=== PATIENT | female | born 1955 | race Caucasian/White ===

== ENCOUNTER → 2018-01-20 10:48 | Outpatient (CLI) | payer OTHER, SELFPAY ==
[2018-01-20 12:51] LABS: Cholesterol 278 mg/dL (140-199); Glucose 95 mg/dL (80-110); HDL Cholesterol 44 mg/dL (40-60); LDL Cholesterol Calculated 176 mg/dL (<100); Triglycerides 292 mg/dL (35-150)
== END ==
PROVIDERS: PCP Family Medicine; Visit Provider Family Medicine
DX: Z13.1 Encounter for screening for diabetes mellitus (principal); Z13.220 Encounter for screening for lipoid disorders; E03.9 Hypothyroidism, unspecified
CPT/HCPCS: 36415; 80061; 82947; 84443

== ENCOUNTER → 2018-02-22 12:36 | Outpatient (CLI) | payer OTHER, SELFPAY ==
--- NOTE | 2018-02-22 12:38 | DI.MG.S_ITS ---
BILATERAL DIGITAL SCREENING MAMMOGRAM 3D/2D WITH CAD: 02/22/2018 CLINICAL: Routine screening. Family history of breast cancer. Comparison is made to exams dated: 11/22/2015 mammogram, 02/06/2013 mammogram, and 08/16/2010 mammogram - [facility]. The tissue of both breasts is predominantly fatty. Current study was also evaluated with a Computer Aided Detection (CAD) system. There are benign post operative findings in both breasts. No significant masses, calcifications, or other findings are seen in either breast. There has been no significant interval change. IMPRESSION: There is no mammographic evidence of malignancy. A 1 year screening mammogram is recommended.(02/23/2019) This exam was interpreted at Station ID: [id number]. NOTE: For mammograms, a report in lay terms will be sent to the patient. Approximately 15% of breast malignancies will not be visualized mammographically. In the management of a palpable breast mass, a negative mammogram must not discourage biopsy of a clinically suspicious lesion. Electronically Signed By: Anna grover/niko:02/24/2018 09:19:03 letter sent: Normal Exam ACR BI-RADS Category 2: Benign Finding(s) 3342F
== END ==
PROVIDERS: PCP Family Medicine; Visit Provider Family Medicine
DX: Z12.31 Encounter for screening mammogram for malignant neoplasm of breast (principal); Z80.3 Family history of malignant neoplasm of breast
CPT/HCPCS: 77063; 77067

== ENCOUNTER → 2018-04-04 09:41 | Outpatient (CLI) | payer OTHER, SELFPAY ==
[2018-04-04 12:40] LABS: Thyroid Stimulating Hormone < 0.02 uIU/mL (0.47-4.68)
== END ==
PROVIDERS: PCP Family Medicine; Visit Provider Family Medicine
DX: E03.9 Hypothyroidism, unspecified (principal)
CPT/HCPCS: 36415; 84443

== ENCOUNTER → 2018-12-15 16:06 | Outpatient (CLI) | payer MEDICARE, OTHER, SELFPAY ==
[2018-12-15 17:31] LABS: Free T3, Triiodothyronine Free 4.89 pg/mL (2.77-5.27)
[2018-12-15 17:45] LABS: Thyroid Stimulating Hormone < 0.02 uIU/mL (0.47-4.68)
[2018-12-17 16:31] LABS: Thyroid Peroxidase Antibodies 13 IU/mL (< 9)
== END ==
PROVIDERS: PCP Family Medicine; Visit Provider Family Medicine
DX: E03.9 Hypothyroidism, unspecified (principal)
CPT/HCPCS: 36415; 84436; 84443; 84481; 86376

== ENCOUNTER → 2018-12-29 08:18 | Outpatient (CLI) | payer MEDICARE, OTHER, SELFPAY ==
--- NOTE | 2018-12-29 08:23 | DI.RAD.S_ITS ---
PROCEDURE: XR ANKLE LT MIN 3V INDICATIONS: l ankle pain TECHNIQUE: 3 views of the ankle were acquired. COMPARISON: None. FINDINGS: Bones: No fractures or dislocations. Ankle mortise is normally aligned. No suspicious bony lesions. Well-defined plantar and dorsal calcaneal enthesophytes are seen. Soft tissues: No tibiotalar joint effusion. Achilles tendon appears normal. Moderate soft tissue swelling is seen around ankle joint particularly over lateral malleolus. IMPRESSION: Soft tissue swelling around ankle joint. No definite acute ankle fracture or dislocation. Dictated by: Conrado Campos M.D. on 12/29/2018 at 8:09 Approved by: Conrado Campos M.D. on 12/29/2018 at 8:13
== END ==
PROVIDERS: PCP Family Medicine; Visit Provider Physician Assistant
DX: M25.572 Pain in left ankle and joints of left foot (principal); M79.89 Other specified soft tissue disorders
CPT/HCPCS: 73610

== ENCOUNTER → 2019-04-13 11:21 | Outpatient (CLI) | payer MEDICARE, OTHER, SELFPAY ==
[2019-04-13 13:42] LABS: TSH w/ Reflex to FT4 < 0.02 uIU/mL (0.47-4.68)
[2019-04-13 14:37] LABS: Free T4, Direct Thyroxine 1.69 ng/dL (0.78-2.19)
== END ==
PROVIDERS: PCP Family Medicine; Visit Provider Family Medicine
DX: E03.9 Hypothyroidism, unspecified (principal)
CPT/HCPCS: 36415; 84439; 84443

== ENCOUNTER → 2020-06-27 10:00 | Outpatient (CLI) | payer MEDICARE, OTHER, SELFPAY ==
[2020-06-27 11:07] LABS: Add Manual Diff / Slide Review NO; Basophils Absolute Auto 0 /uL (0-100); Basophils Percent Auto 0.9 % (0-2); Eosinophils Absolute Auto 100 /uL (0-450); Eosinophils Percent Auto 3.7 % (2-4); Lymphocytes Absolute Auto 1300 /uL (1100-4500); Mean Corpuscular Hemoglobin 29.8 PG (26-34); Mean Corpuscular Volume 87.6 fL (80-100); Monocytes Absolute Auto 400 /uL (0-900); Neutrophils Absolute Auto 2200 /uL (1500-7000); Neutrophils Percent Auto 54.4 % (50-75); Platelet Count 225 X10^3/uL (150-400); Red Blood Cell Count 5.02 X10^6/uL (4.0-5.2); Red Cell Distribution Width 13.1 % (11.6-14.8)
[2020-06-27 11:18] LABS: Alanine Aminotransferase 30 IU/L (<35); Albumin 4.2 g/dL (3.5-5.0); Albumin Globulin Ratio 1.4 (1.0-2.8); Alkaline Phosphatase 92 U/L (38-126); Aspartate Aminotransferase 37 IU/L (14-36); BUN Creatinine Ratio 23.7 (6-22); Bilirubin Total 0.4 mg/dL (0.2-1.3); Blood Urea Nitrogen 23 mg/dL (7-17); Calcium 9.1 mg/dL (8.4-10.2); Carbon Dioxide 30 mmol/L (22-32); Chloride 104 mmol/L (98-107); Cholesterol 260 mg/dL (140-199); Estimated Glomerular Filt Rate 57.5 mL/min (>60); Globulin 2.9 g/dL (1.7-4.1); Glucose 104 mg/dL (80-110); HDL Cholesterol 46 mg/dL (40-60); HEMOLYSIS < 15 (0-50); LDL Cholesterol Calculated 154 mg/dL (<100); Potassium 4.5 mmol/L (3.4-5.1); Sodium 138 mmol/L (137-145); Total Protein 7.1 g/dL (6.3-8.2); Triglycerides 301 mg/dL (35-150)
[2020-06-27 11:57] LABS: Free T3, Triiodothyronine Free 4.02 pg/mL (2.77-5.27); Free T4, Direct Thyroxine 1.34 ng/dL (0.78-2.19)
[2020-06-27 12:11] LABS: Thyroid Stimulating Hormone 0.294 uIU/mL (0.47-4.68)
== END ==
PROVIDERS: PCP Family Medicine; Referring Provider Family Medicine; Visit Provider Family Medicine
DX: Z13.1 Encounter for screening for diabetes mellitus (principal); E03.9 Hypothyroidism, unspecified; E78.5 Hyperlipidemia, unspecified
CPT/HCPCS: 36415; 80053; 80061; 84439; 84443; 84481; 85025

== ENCOUNTER → 2020-07-27 11:53 | Outpatient (CLI) | payer MEDICARE, OTHER, SELFPAY ==
--- NOTE | 2020-07-27 11:55 | DI.MG.S_ITS ---
BILATERAL DIGITAL SCREENING MAMMOGRAM 3D/2D WITH CAD: 07/27/2020 CLINICAL: Routine screening. Family history of breast cancer. Comparison is made to exams dated: 02/22/2018 mammogram - [facility] and 11/22/2015 mammogram - [facility]. The tissue of both breasts is predominantly fatty. Current study was also evaluated with a Computer Aided Detection (CAD) system. There are benign post operative findings in both breasts. No significant masses, calcifications, or other findings are seen in either breast. There has been no significant interval change. IMPRESSION: BENIGN There is no mammographic evidence of malignancy. A 1 year screening mammogram is recommended. This exam was interpreted at Station ID: [id number]. NOTE: For mammograms, a report in lay terms will be sent to the patient. Approximately 15% of breast malignancies will not be visualized mammographically. In the management of a palpable breast mass, a negative mammogram must not discourage biopsy of a clinically suspicious lesion. Electronically Signed By: Dre collier/niko:07/27/2020 16:21:30 letter sent: Normal Exam ACR BI-RADS Category 2: Benign Finding(s) 3342F
== END ==
PROVIDERS: PCP Family Medicine; Referring Provider Family Medicine; Visit Provider Family Medicine
DX: Z12.31 Encounter for screening mammogram for malignant neoplasm of breast (principal); Z80.3 Family history of malignant neoplasm of breast
CPT/HCPCS: 77063; 77067

== ENCOUNTER → 2021-02-06 12:39 | Outpatient (CLI) | payer MEDICARE, OTHER, SELFPAY ==
[2021-02-06 16:59] LABS: Thyroid Stimulating Hormone 0.193 uIU/mL (0.47-4.68)
== END ==
PROVIDERS: PCP Family Medicine; Referring Provider Family Medicine; Visit Provider Family Medicine
DX: E03.9 Hypothyroidism, unspecified (principal)
CPT/HCPCS: 36415; 84443

== ENCOUNTER → 2021-03-28 10:20 | Outpatient (CLI) | payer MEDICARE, OTHER, SELFPAY ==
[2021-03-28 13:48] LABS: Thyroid Stimulating Hormone 7.36 uIU/mL (0.47-4.68)
== END ==
PROVIDERS: PCP Family Medicine; Referring Provider Family Medicine; Visit Provider Family Medicine
DX: E03.9 Hypothyroidism, unspecified (principal)
CPT/HCPCS: 36415; 84443

== ENCOUNTER → 2021-08-24 15:15 | Outpatient (CLI) | payer MEDICARE, OTHER, SELFPAY ==
--- NOTE | 2021-08-24 15:16 | DI.MG.S_ITS ---
BILATERAL DIGITAL SCREENING MAMMOGRAM 3D/2D WITH CAD: 08/24/2021 CLINICAL: Routine screening. Family history of breast cancer. Comparison is made to exams dated: 07/27/2020 mammogram, 02/22/2018 mammogram - [facility], and 11/22/2015 mammogram - [facility]. The tissue of both breasts is predominantly fatty. Current study was also evaluated with a Computer Aided Detection (CAD) system. There are benign post operative findings in both breasts. No significant masses, calcifications, or other findings are seen in either breast. There has been no significant interval change. IMPRESSION: BENIGN There is no mammographic evidence of malignancy. A 1 year screening mammogram is recommended. This exam was interpreted at Station ID: [id number]. NOTE: For mammograms, a report in lay terms will be sent to the patient. Approximately 15% of breast malignancies will not be visualized mammographically. In the management of a palpable breast mass, a negative mammogram must not discourage biopsy of a clinically suspicious lesion. Electronically Signed By: Dre collier/niko:08/24/2021 16:15:20 letter sent: Normal Exam ACR BI-RADS Category 2: Benign Finding(s) 3342F
== END ==
PROVIDERS: PCP Family Medicine; Referring Provider Family Medicine; Visit Provider Family Medicine
DX: Z12.31 Encounter for screening mammogram for malignant neoplasm of breast (principal); Z80.3 Family history of malignant neoplasm of breast
CPT/HCPCS: 77063; 77067

== ENCOUNTER → 2021-09-14 09:47 | Outpatient (CLI) | payer MEDICARE, OTHER, SELFPAY ==
[2021-09-14 12:16] LABS: Thyroid Stimulating Hormone 0.423 uIU/mL (0.47-4.68)
== END ==
PROVIDERS: PCP Family Medicine; Referring Provider Family Medicine; Visit Provider Family Medicine
DX: E03.9 Hypothyroidism, unspecified (principal)
CPT/HCPCS: 36415; 84443

== ENCOUNTER → 2021-10-18 10:13 | Outpatient (CLI) | payer MEDICARE, OTHER, SELFPAY ==
[2021-10-18 12:13] LABS: Appearance Urine UA CLEAR; Bilirubin Urine UA NEGATIVE (NEGATIVE); Color Urine UA YELLOW; Glucose Urine UA NEGATIVE (Negative); Ketones Urine UA NEGATIVE (NEGATIVE); Leukocyte Esterase Urine UA NEGATIVE (NEGATIVE); Nitrite Urine UA POSITIVE (Negative); Occult Blood Urine UA TRACE-INTACT (Negative); Protein Urine UA NEGATIVE (Negative); Urobilinogen Urine UA 0.2 E.U./dL (0.2)
[2021-10-18 12:18] LABS: Bacteria Urine Many (>30); RBC Urine None Seen (0-5/HPF); WBC Urine None Seen (0-5/HPF)
== END ==
PROVIDERS: PCP Family Medicine; Visit Provider Family Medicine
DX: R35.0 Frequency of micturition (principal); R82.90 Unspecified abnormal findings in urine
CPT/HCPCS: 81001; 87086

== ENCOUNTER → 2021-10-18 10:27 | Outpatient (CLI) | payer MEDICARE, OTHER, SELFPAY ==
--- NOTE | 2021-10-18 10:29 | DI.RAD.S_ITS ---
PROCEDURE: XR HAND RT MIN 3V INDICATIONS: Hand Pain TECHNIQUE: 3 views of the hand(s) acquired. COMPARISON: [facility], CR, XR HAND LT MIN 3V, 10/18/2021, 10:19. FINDINGS: Bones: No fractures or dislocations. Carpal bones are normally aligned. No suspicious bony lesions. Moderate 1st CMC degenerative narrowing is present. No definitive erosions. Soft tissues: No suspicious soft tissue calcifications. IMPRESSION: Moderate 1st CMC arthritic narrowing. Dictated by: Suzie Greer M.D. on 10/18/2021 at 14:21 Approved by: Suzie Greer M.D. on 10/18/2021 at 14:48
--- NOTE | 2021-10-18 10:29 | DI.RAD.S_ITS ---
PROCEDURE: XR HAND LT MIN 3V INDICATIONS: Hand Pain TECHNIQUE: 3 views of the hand(s) acquired. COMPARISON: None. FINDINGS: Bones: No fractures or dislocations. Carpal bones are normally aligned. No suspicious bony lesions. There is mild interphalangeal joint space narrowing. There is severe osteoarthritis at the 1st CMC joint. A subchondral cyst is present within the trapezium. Soft tissues: No suspicious soft tissue calcifications. IMPRESSION: Severe osteoarthritis at the 1st CMC joint. Mild interphalangeal joint space narrowing consistent with osteoarthritis. Dictated by: Anna Londono M.D. on 10/18/2021 at 11:51 Approved by: Anna Londono M.D. on 10/18/2021 at 11:52
== END ==
PROVIDERS: PCP Family Medicine; Referring Provider Family Medicine; Visit Provider Family Medicine
DX: M18.0 Bilateral primary osteoarthritis of first carpometacarpal joints (principal); M79.641 Pain in right hand; M79.642 Pain in left hand; R35.0 Frequency of micturition; R82.90 Unspecified abnormal findings in urine
CPT/HCPCS: 73130; 81001; 87077; 87086; 87186

== ENCOUNTER → 2021-10-19 08:36 | Outpatient (CLI) | payer MEDICARE, OTHER, SELFPAY ==
[2021-10-19 10:39] LABS: Thyroid Stimulating Hormone 3.76 uIU/mL (0.47-4.68)
== END ==
PROVIDERS: PCP Family Medicine; Referring Provider Family Medicine; Visit Provider Family Medicine
DX: E03.9 Hypothyroidism, unspecified (principal); R89.9 Unspecified abnormal finding in specimens from other organs, systems and tissues
CPT/HCPCS: 36415; 84443

== ENCOUNTER → 2022-10-04 09:43 | Outpatient (CLI) | payer MEDICARE, OTHER, SELFPAY ==
--- NOTE | 2022-10-04 09:46 | DI.RAD.S_ITS ---
PROCEDURE: XR KNEE RT 3V INDICATIONS: knee pain TECHNIQUE: 3 views of the knee were acquired. COMPARISON: None. FINDINGS: Bones: No fractures or dislocations. No suspicious bony lesions. Moderate medial compartment joint space narrowing Soft tissues: No joint effusion. No suspicious soft tissue calcifications. IMPRESSION: Moderate medial compartment joint space narrowing Approved by: Guero Ayala M.D. on 10/04/2022 at 14:06
== END ==
PROVIDERS: PCP Family Medicine; Referring Provider Nurse Practitioner Family; Visit Provider Nurse Practitioner Family
DX: M25.561 Pain in right knee (principal)
CPT/HCPCS: 73562

== ENCOUNTER → 2023-04-09 11:15 | Outpatient (CLI) | payer MEDICARE, OTHER, SELFPAY ==
--- NOTE | 2023-04-09 11:18 | DI.RAD.S_ITS ---
PROCEDURE: XR LUMBAR SPINE 2-3V INDICATIONS: Pain TECHNIQUE: 3 views of the lumbar spine were acquired. COMPARISON: None. FINDINGS: Bones: 5 [id number] vertebrae are present. There is normal bony alignment. No vertebral body compression fractures. No suspicious bony lesions. Moderate degenerative disc disease at L5-S1, and mild degenerative disease at L1-L2. Moderate facet arthropathy at L4-L5 and L5-S1. Soft tissues: Overlying bowel gas pattern is normal. No suspicious soft tissue calcifications. Cholecystectomy clips are noted. IMPRESSION: 1. Moderate degenerative disc and facet disease. Dictated by: Latesha Rios M.D. on 04/09/2023 at 13:28 Approved by: Latesha Rios M.D. on 04/09/2023 at 13:29
[2023-04-09 13:25] LABS: Cholesterol 211 mg/dL (140-199); Glucose 102 mg/dL (80-110); HDL Cholesterol 50 mg/dL (40-60); LDL Cholesterol Calculated 137 mg/dL (<100); Triglycerides 121 mg/dL (35-150)
[2023-04-09 14:12] LABS: TSH w/ Reflex to FT4 0.06 uIU/mL (0.47-4.68)
[2023-04-09 14:52] LABS: Free T4, Direct Thyroxine 1.61 ng/dL (0.78-2.19)
== END ==
PROVIDERS: PCP Family Medicine; Referring Provider Family Medicine; Visit Provider Family Medicine
DX: Z13.1 Encounter for screening for diabetes mellitus (principal); E03.9 Hypothyroidism, unspecified; Z13.220 Encounter for screening for lipoid disorders; M51.36 Other intervertebral disc degeneration, lumbar region; M47.816 Spondylosis without myelopathy or radiculopathy, lumbar region
CPT/HCPCS: 36415; 72100; 80061; 82947; 84439; 84443

== ENCOUNTER → 2023-04-09 14:15 | Outpatient (CLI) | payer MEDICARE, OTHER, SELFPAY ==
--- NOTE | 2023-04-09 | DI.MG.S_ITS ---
BILATERAL DIGITAL SCREENING MAMMOGRAM 3D/2D WITH CAD: 04/09/2023 CLINICAL: Routine screening. Family history of breast cancer. Comparison is made to exams dated: 08/24/2021 mammogram, 07/27/2020 mammogram, and 02/22/2018 mammogram - [facility]. Both breasts are almost entirely fatty (category a/<25% glandular tissue). Current study was also evaluated with a Computer Aided Detection (CAD) system. There are benign post operative findings in both breasts. No significant masses, calcifications, or other findings are seen in either breast. There has been no significant interval change. IMPRESSION: BENIGN There is no mammographic evidence of malignancy. A 1 year screening mammogram is recommended. Based on the Tyrer Cuzick model (a risk assessment model) the patient's lifetime risk is 7.3% and her 10 year risk is 4.3%. According to the ACR, ACS, and NCCN guidelines, an annual breast MRI exam along with mammogram is recommended if the patient's lifetime risk is 20% or greater. This exam was interpreted at Station ID: [id number]. NOTE: For mammograms, a report in lay terms will be sent to the patient. Approximately 15% of breast malignancies will not be visualized mammographically. In the management of a palpable breast mass, a negative mammogram must not discourage biopsy of a clinically suspicious lesion. Electronically Signed By: Thad Stauffer M.D. acr/niko:04/09/2023 15:30:49 letter sent: Normal Exam ACR BI-RADS Category 2: Benign Finding(s) 3342F
== END ==
PROVIDERS: PCP Family Medicine; Referring Provider Family Medicine; Visit Provider Family Medicine
DX: Z12.31 Encounter for screening mammogram for malignant neoplasm of breast (principal); Z80.3 Family history of malignant neoplasm of breast
CPT/HCPCS: 77063; 77067

== ENCOUNTER → 2023-08-14 12:55 | Outpatient (CLI) | payer MEDICARE, OTHER, SELFPAY ==
[2023-08-14 14:54] LABS: Free T4, Direct Thyroxine 1.17 ng/dL (0.78-2.19)
== END ==
LOC: LAB 12:56
PROVIDERS: PCP Family Medicine; Referring Provider Family Medicine; Visit Provider Family Medicine
DX: E03.9 Hypothyroidism, unspecified (principal)
CPT/HCPCS: 36415; 84439; 84443

== ENCOUNTER → 2023-10-18 09:30 | Outpatient (CLI) | payer MEDICARE, OTHER, SELFPAY ==
[2023-10-18 11:10] LABS: TSH w/ Reflex to FT4 3.85 uIU/mL (0.47-4.68)
== END ==
LOC: LAB 09:32
PROVIDERS: PCP Family Medicine; Referring Provider Family Medicine; Visit Provider Family Medicine
DX: E03.9 Hypothyroidism, unspecified (principal)
CPT/HCPCS: 36415; 84443

== ENCOUNTER → 2024-09-09 09:53 | Outpatient (CLI) | payer MEDICARE, OTHER, SELFPAY ==
--- NOTE | 2024-09-09 09:55 | DI.MG.S_ITS ---
MM screening mammo BI: 09/09/2024. BI-RADS: 2 CLINICAL: 68-year old female for bilateral screening mammogram. Tyrer-Cuzick lifetime risk of 4.8%. Current reported family history of breast cancer: mother. The patient is status-post reduction mammoplasty. PRIOR EXAMS 04/09/2023, 08/24/2021, 07/27/2020, 02/22/2018. MAMMOGRAPHY TECHNIQUE: 2D and 3D (tomosynthesis) digital mammographic views obtained, with additional images as needed for full coverage. Current study was also evaluated with a Computer Aided Detection (CAD) system. DENSITY A. The breasts are almost entirely fatty. MAMMOGRAPHY FINDINGS Right: Benign-appearing calcification and post-surgical changes noted on the right. There are no suspicious masses, calcifications, or other findings in the breast. No significant change from comparison. Left: No suspicious mass, asymmetry, microcalcification, or other abnormality seen. No significant change from comparison. IMPRESSION: Right * No evidence of malignancy with benign findings. Left * No evidence of malignancy. RECOMMENDATIONS Bilateral * Annual screening mammography. OVERALL ASSESSMENT CATEGORY BI-RADS-2: Benign. The [employer] recommends annual screening mammography beginning at age 40 for women with average risk of breast cancer. ELECTRONICALLY SIGNED: Eleanor Zhao M.D. on 09/09/2024 at 11:06:46 AM PT Interpreting Station ID: [id number]
== END ==
PROVIDERS: PCP Family Medicine; Referring Provider Family Medicine; Visit Provider Family Medicine
DX: Z12.31 Encounter for screening mammogram for malignant neoplasm of breast (principal); Z80.3 Family history of malignant neoplasm of breast; R92.313 Mammographic fatty tissue density, bilateral breasts
CPT/HCPCS: 77063; 77067

== ENCOUNTER 2024-11-25 12:21 | Outpatient (RCR) | payer MEDICARE, OTHER, SELFPAY ==
--- NOTE | 2024-11-25 15:32 | OT.OPPOC ---
Physical, Occupational & Speech Therapy At [facility] Rhea Moran [id number] Visit Care Team Role Provider Type Lorena To MD Family Provider Physician Primary Care Provider Address: [facility], [place], [address] Cy Pan MD Attending Provider Non-Staff Referring Provider Address: [address] [place] [address], [id number] Occupational Therapy Plan of Care OT Outpatient Adult Evaluation Start: 11/25/24 12:08 Freq: Status: Active Protocol: Document 11/25/24 12:09 (Rec: 11/25/24 12:12 [id number]) General Information - Adult Visit Information Visit Number 1 of 12 Plan of Care Dates 11/25/24-02/17/25 Insurance no pre-auth;no copay;KX modifier required after 19 OT Information visits Session Time Visit Start Date 11/25/24 Visit Start Time 13:00 Visit Stop Time 13:45 Setting Treatment Setting Outpatient Care Visit Type Note Type Initial Evaluation Referral Referring Physician Dr. Cy Pan Reason for Referral Closed displaced fracture of proximal phalanx of L little finger Precautions none stated Identification Identification Yes Confirmed Identification EMR Confirmed By Medical Information Medical History R knee partial replacement ~1year ago, arthritis of L hand/fingers (limited AROM at baseline per patient report) Social Information Social History It doesn't hurt unless I have really been doing a lot with it but the swelling isn't budging Patient Questionnaires Quick Dash- Upper Extremity Quick Dash UE Score 56.8 Quick Dash UE 40 to 59% Impaired (Score 40-59) Impairment Goals Objective Measurements Objective L Measurements: [MCP flexion- 2nd: 74*, 3rd: 80*, 4th: Measurements 52*, 5th: 30*; PIP Flexion- 2nd: 109*, 3rd: 106*, 4th: 106*, 5th: 60*; DIP flexion- 2nd: 70*, 3rd: 80*, 4th: 88*, 5th: 50*; Supervisor Buffing And Pasting: 18 - Average- 17.3#; Tripod Pinch: 15#, Lateral Pinch 14#]; R Measurements: [MCP flexion- 2nd: 90*, 3rd: 90*, 4th: 90*, 5th: 90*; PIP Flexion- 2nd: 108*, 3rd: 108*, 4th: 108*, 5th: 102*; DIP flexion- 2nd: 66*, 3rd: 70*, 4th: 70*, 5th: 74*; Supervisor Buffing [employer] Pasting: - Average- 24.7#; Tripod Pinch: 13#, Lateral Pinch 15#] Treatment Treatment Patient was educated on the anatomy, healing timelines, and common considerations associated with finger fractures, including expected progression of ROM and strengthening phases, precautions to avoid overstressing healing tissues, and strategies to reduce morning stiffness and activity-related pain. A thorough review of all handouts and home exercise program (HEP) materials was completed, including edema management techniques such as elevation, retrograde massage, and contrast baths; safe AROM progression and tendon gliding exercises; pain management and pacing strategies; and joint protection approaches for managing co-occurring arthritis symptoms. Patient demonstrated good return demonstration of all prescribed HEP components and verbalized clear understanding of precautions, treatment rationale, and goals of care. The purpose of therapy and the HEP was reinforced, emphasizing advent of finger mobility, progressive strengthening once ROM improves, and prevention of secondary stiffness or functional decline . Patient was issued theraputty with instruction for pain-free use only and will carry out the independent program while traveling from 12/01?12/24. She is scheduled to resume skilled OT services on 12/25 for continued progression. Short Term Goals Short Term Goals 1. Patient will demonstrate independent performance of HEP with adherence to precautions and appropriate activity modification during travel period, as evidenced by verbal report and review upon return within 5 weeks. 2. Patient will improve L 5th digit PIP flexion from 60 ? to at least 80? AROM to support functional grasp patterns for light ADL performance within 6 weeks. 3. Patient will reduce reported pain from morning peak of 6/10 to </=3/10 with use of edema and stiffness management strategies, as evidenced by subjective report within 6 weeks. Senior Living Goals Senior Living Goals Patient will achieve functional AROM of L 5th digit ( MCP =70?, PIP =90?, DIP =60?) to support coordinated grasp and release during fine motor tasks. 1. 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 2.Patient will demonstrate pain-free composite flexion of the L hand to allow return to pre-injury ADL participation with minimal compensation within 12 weeks . 3. Patient will show clinically significant improvement in functional use of the hand with QuickDASH score reduced to </=30, indicating improved self-perceived function within 12 weeks. Assessment/Plan Assessment Patient Response Good Rehabilitation Good Potential Impairments ADLs,Coordination/Dexterity,Flexibility,Functional Identified Activities,Motor Function,Pain,Weakness,Range of Motion ,Recreational Activities,Meaningful Activities, Stiffness,Swelling,Soft Tissue Mobility Treatment Assessment 68 year old RHD female referred to Occupational Therapy by Dr. Cy Pan after a ground level fall on grass 11/02/24 with resultant left small finger proximal phalanx (P1) fracture. Fracture was managed non- surgically and reduced in the ER; orthopedic follow-up indicated no need for surgical intervention and permitted ROM and strengthening at therapist discretion without formal precautions. At today?s evaluation (~3 weeks post-injury), the patient presents with significant AROM limitations isolated to the left small finger with deficits noted in AROM of MCP Flexion, PIP Flexion, DIP Flexion, and PIP Extension lag. Adjacent digits of the left hand also show subclinical reductions in MCP flexion, consistent with underlying baseline arthritis and stiffness, especially in the L thumb. Strength testing revealed mild to moderate global felled seam operator chainstitch and pinch strength deficits on the left compared to the right. Patient subjectively reports no pain at rest, but consistent morning stiffness with pain up to 6/10 that resolves with movement, as well as activity-induced aching in the ulnar palm and digit, especially after tasks requiring felled seam operator chainstitch or fine motor use. Some nighttime aching is also reported with overuse. Palpation after testing confirmed tenderness along the ulnar palm. Patient reports a history of arthritis in the left hand , particularly affecting the thumb, and indicates she has baseline ROM and strength deficits. This arthritis appears to be a compounding factor influencing recovery and may impact hand function independently of the fracture. She demonstrated good insight and return demonstration of a graded HEP focused on AROM, safe tendon gliding, edema management (including retrograde massage, elevation, and contrast baths), and initiation of light functional conditioning. She was also educated on arthritis symptom management, tissue healing timelines, and safety precautions to avoid provoking pain or aggravating symptoms. Theraputty was issued with clear guidelines for pain-free use only and to avoid composite or resisted flexion until further progression is appropriate. Patient will be out of town 12/01?12/24 and has been provided with written instructions, supplies, and clear expectations for her independent care during that time . She is scheduled to resume OT services 12/25 as patient will benefit from continued skilled OT to address advent of full AROM at the 5th digit, with focus on PIP extension lag and flexion deficits, progressive strengthening once full ROM is re-established and injury is less acute, edema and soft tissue management to prevent adhesions or functional limitations as well as ongoing arthritis symptom education and joint protection strategies Patient is expected to benefit from skilled OT to support joint mobility, functional recovery, and safe reintegration of hand for increased independence in participation of ADL and IADL. Home Exercise Pt provided resources for tendon glides, theraputty Program exercises, retrograde massage, contrast baths and edema management Reviewed with Goals,Home Exercise Program Patient Patient Good Understanding Plan Length of treatment 12 (weeks) Plan of Care Start 11/25/24 Date Plan of Care End 02/17/25 Date Treatment Frequency Once a Week Treatment Duration 45 Minutes Therapeutic Contents Active Range of Motion,Client Education,Functional Activities,Home Exercise Program,Education,Self-Care, Stretching/Flexibility Activities,Therapeutic Activities,Therapeutic Exercises,Modalities Modalities As Needed Types of Modalities Ice Massage,Other Additional Types of MHP, paraffin Modalities Patient Instruction Home Exercise Program,Plan of Care,Questions/Concerns Patient Continue with Current Program Recommendations Electronically Signed by: Alessia Rangel, OT 11/25/24 [id number] If you are in agreement with this Plan of Care, please return a signed and dated copy. I have reviewed this Plan of Care and certify that the skilled therapy services above are required to meet the patient?s needs. Physician Signature Date Printed Name and Credentials Clinical Instructor Signature Printed Name and Credentials
--- NOTE | 2024-11-26 17:13 | OT.OP.DC ---
Visit Care Team Role Provider Type Lorena To MD Family Provider Physician Primary Care Provider Address: [address] [place] [address], [facility] [place], [address] Email: [email or web address] Cy Pan MD Attending Provider Non-Staff Referring Provider Address: [address] [place] [address], [id number] Email: OT Outpatient Discharge Summary OT Outpatient Adult Evaluation Start: 11/25/24 12:08 Freq: Status: Active Protocol: Document 11/25/24 13:00 (Rec: 11/25/24 12:12 [id number]) General Information - Adult Visit Information Visit Number 1 of 12 Plan of Care Dates 11/25/24-02/17/25 Insurance no pre-auth;no copay;KX modifier required after 19 OT Information visits Session Time Visit Start Date 11/25/24 Visit Start Time 13:00 Visit Stop Time 13:45 Setting Treatment Setting Outpatient Care Visit Type Note Type Initial Evaluation Referral Referring Physician Dr. Cy Pan Reason for Referral Closed displaced fracture of proximal phalanx of L little finger Precautions none stated Identification Identification Yes Confirmed Identification EMR Confirmed By Medical Information Medical History R knee partial replacement ~1year ago, arthritis of L hand/fingers (limited AROM at baseline per patient report) Social Information Social History It doesn't hurt unless I have really been doing a lot with it but the swelling isn't budging Patient Questionnaires Quick Dash- Upper Extremity Quick Dash UE Score 56.8 Quick Dash UE 40 to 59% Impaired (Score 40-59) Impairment Goals Objective Measurements Objective L Measurements: [MCP flexion- 2nd: 74*, 3rd: 80*, 4th: Measurements 52*, 5th: 30*; PIP Flexion- 2nd: 109*, 3rd: 106*, 4th: 106*, 5th: 60*; DIP flexion- 2nd: 70*, 3rd: 80*, 4th: 88*, 5th: 50*; Dispute Coordinator: 16/18/18 - Average- 17.3#; Tripod Pinch: 15#, Lateral Pinch 14#]; R Measurements: [MCP flexion- 2nd: 90*, 3rd: 90*, 4th: 90*, 5th: 90*; PIP Flexion- 2nd: 108*, 3rd: 108*, 4th: 108*, 5th: 102*; DIP flexion- 2nd: 66*, 3rd: 70*, 4th: 70*, 5th: 74*; Dispute Coordinator: - Average- 24.7#; Tripod Pinch: 13#, Lateral Pinch 15#] Treatment Treatment Patient was educated on the anatomy, healing timelines, and common considerations associated with finger fractures, including expected progression of ROM and strengthening phases, precautions to avoid overstressing healing tissues, and strategies to reduce morning stiffness and activity-related pain. A thorough review of all handouts and home exercise program (HEP) materials was completed, including edema management techniques such as elevation, retrograde massage, and contrast baths; safe AROM progression and tendon gliding exercises; pain management and pacing strategies; and joint protection approaches for managing co-occurring arthritis symptoms. Patient demonstrated good return demonstration of all prescribed HEP components and verbalized clear understanding of precautions, treatment rationale, and goals of care. The purpose of therapy and the HEP was reinforced, emphasizing taoist of finger mobility, progressive strengthening once ROM improves, and prevention of secondary stiffness or functional decline . Patient was issued theraputty with instruction for pain-free use only and will carry out the independent program while traveling from 12/01?12/24. She is scheduled to resume skilled OT services on 12/25 for continued progression. Short Term Goals Short Term Goals 1. Patient will demonstrate independent performance of HEP with adherence to precautions and appropriate activity modification during travel period, as evidenced by verbal report and review upon return within 5 weeks. 2. Patient will improve L 5th digit PIP flexion from 60 ? to at least 80? AROM to support functional grasp patterns for light ADL performance within 6 weeks. 3. Patient will reduce reported pain from morning peak of 6/10 to </=3/10 with use of edema and stiffness management strategies, as evidenced by subjective report within 6 weeks. Office Admin Goals Office Admin Goals Patient will achieve functional AROM of L 5th digit ( MCP =70?, PIP =90?, DIP =60?) to support coordinated grasp and release during fine motor tasks. 1. Patient will demonstrate symmetrical or near- symmetrical railroad repairer strength within 80% of R hand (goal: = 20#) to support functional bimanual ADL and IADL performance within 12 weeks. 2.Patient will demonstrate pain-free composite flexion of the L hand to allow return to pre-injury ADL participation with minimal compensation within 12 weeks . 3. Patient will show clinically significant improvement in functional use of the hand with QuickDASH score reduced to </=30, indicating improved self-perceived function within 12 weeks. Assessment/Plan Assessment Patient Response Good Rehabilitation Good Potential Impairments ADLs,Coordination/Dexterity,Flexibility,Functional Identified Activities,Motor Function,Pain,Weakness,Range of Motion ,Recreational Activities,Meaningful Activities, Stiffness,Swelling,Soft Tissue Mobility Treatment Assessment 68 year old RHD female referred to Occupational Therapy by Dr. Cy Pan after a ground level fall on grass 11/02/24 with resultant left small finger proximal phalanx (P1) fracture. Fracture was managed non- surgically and reduced in the ER; orthopedic follow-up indicated no need for surgical intervention and permitted ROM and strengthening at therapist discretion without formal precautions. At today?s evaluation (~3 weeks post-injury), the patient presents with significant AROM limitations isolated to the left small finger with deficits noted in AROM of MCP Flexion, PIP Flexion, DIP Flexion, and PIP Extension lag. Adjacent digits of the left hand also show subclinical reductions in MCP flexion, consistent with underlying baseline arthritis and stiffness, especially in the L thumb. Strength testing revealed mild to moderate global railroad repairer and pinch strength deficits on the left compared to the right. Patient subjectively reports no pain at rest, but consistent morning stiffness with pain up to 6/10 that resolves with movement, as well as activity-induced aching in the ulnar palm and digit, especially after tasks requiring railroad repairer or fine motor use. Some nighttime aching is also reported with overuse. Palpation after testing confirmed tenderness along the ulnar palm. Patient reports a history of arthritis in the left hand , particularly affecting the thumb, and indicates she has baseline ROM and strength deficits. This arthritis appears to be a compounding factor influencing recovery and may impact hand function independently of the fracture. She demonstrated good insight and return demonstration of a graded HEP focused on AROM, safe tendon gliding, edema management (including retrograde massage, elevation, and contrast baths), and initiation of light functional conditioning. She was also educated on arthritis symptom management, tissue healing timelines, and safety precautions to avoid provoking pain or aggravating symptoms. Theraputty was issued with clear guidelines for pain-free use only and to avoid composite or resisted flexion until further progression is appropriate. Patient will be out of town 12/01?12/24 and has been provided with written instructions, supplies, and clear expectations for her independent care during that time . She is scheduled to resume OT services 12/25 as patient will benefit from continued skilled OT to address taoist of full AROM at the 5th digit, with focus on PIP extension lag and flexion deficits, progressive strengthening once full ROM is re-established and injury is less acute, edema and soft tissue management to prevent adhesions or functional limitations as well as ongoing arthritis symptom education and joint protection strategies Patient is expected to benefit from skilled OT to support joint mobility, functional recovery, and safe reintegration of hand for increased independence in participation of ADL and IADL. Home Exercise Pt provided resources for tendon glides, theraputty Program exercises, retrograde massage, contrast baths and edema management Reviewed with Goals,Home Exercise Program Patient Patient Good Understanding Plan Length of treatment 12 (weeks) Plan of Care Start 11/25/24 Date Plan of Care End 02/17/25 Date Treatment Frequency Once a Week Treatment Duration 45 Minutes Therapeutic Contents Active Range of Motion,Client Education,Functional Activities,Home Exercise Program,Education,Self-Care, Stretching/Flexibility Activities,Therapeutic Activities,Therapeutic Exercises,Modalities Modalities As Needed Types of Modalities Ice Massage,Other Additional Types of MHP, paraffin Modalities Patient Instruction Home Exercise Program,Plan of Care,Questions/Concerns Patient Continue with Current Program Recommendations Functional Wrist/Hand Scan Hand Side Sensory Assessment Sensory Profile2 OT Outpatient Treatment Note - Adult Start: 11/25/24 12:08 Freq: Status: Active Protocol: Document 11/26/24 17:09 (Rec: 11/26/24 17:13 [id number]) OT Outpatient Adult Treatment Note Visit Information Plan of Care Dates 11/25/24-02/17/25 Setting Treatment Setting Outpatient Care Visit Type Note Type Discharge Summary General Information General Information Patient seen for evaluation only and is requesting discharge from OT services at this time due to upcoming extended travel and the need to obtain an updated referral. No intervention or measurable progress has occurred since evaluation due to lack of follow-up visits. Although patient is discharging per request, she continues to demonstrate the need for skilled occupational therapy services to address identified deficits once she is able to commit to a regular visit schedule. Patient may seek services at an alternate location during travel. - - - - -
== END 2024-12-28 13:54 | disposition home or self-care (01) ==
LOC: OT 12:21
PROVIDERS: Family Provider Family Medicine; PCP Family Medicine; Referring Provider Orthopaedic Surgery; Visit Provider Orthopaedic Surgery
DX: S62.617D Displaced fracture of proximal phalanx of left little finger, subsequent encounter for fracture with routine healing (principal)
CPT/HCPCS: 97165; 97530

== ENCOUNTER → 2025-02-02 08:48 | Outpatient (CLI) | payer MEDICARE, OTHER, SELFPAY ==
[2025-02-02 09:52] LABS: Hemoglobin A1C% w Est Avg Glu 5.6 % (4.0-6.0)
[2025-02-02 09:57] LABS: Cholesterol 230 mg/dL (140-199); HDL Cholesterol 54 mg/dL (40-60); Triglycerides 261 mg/dL (35-150)
[2025-02-02 10:24] LABS: Thyroid Stimulating Hormone 4.14 uIU/mL (0.47-4.68)
[2025-02-02 15:00] LABS: Hep C Virus Ab w/Reflex Quant NEGATIVE s/c (NEGATIVE)
[2025-02-04 21:11] LABS: Codfish Allergy IgE < 0.10 kU/L (Class 0); Hazelnut IgE <0.10 kU/L (Class 0); Salmon Allergy IgE < 0.10 kU/L (Class 0); Scallop Allergy IgE < 0.10 kU/L (Class 0); Sesame seed Allergy IgE < 0.10 kU/L (Class 0); Tuna Allergy IgE < 0.10 kU/L (Class 0); Wheat Allergy IgE 0.16 kU/L (Class 0/I)
== END ==
PROVIDERS: PCP Family Medicine; Referring Provider Family Medicine; Visit Provider Family Medicine
DX: Z13.220 Encounter for screening for lipoid disorders (principal); E03.9 Hypothyroidism, unspecified; Z13.9 Encounter for screening, unspecified; K21.9 Gastro-esophageal reflux disease without esophagitis; R35.89 Other polyuria; Z13.1 Encounter for screening for diabetes mellitus; R73.09 Other abnormal glucose
CPT/HCPCS: 36415; 80061; 83036; 84443; 86003; 86803

== ENCOUNTER → 2025-04-01 10:28 | Outpatient (CLI) | payer MEDICARE, OTHER, SELFPAY ==
[2025-04-01 12:37] LABS: Cholesterol 156 mg/dL (140-199); HDL Cholesterol 59 mg/dL (40-60); Triglycerides 140 mg/dL (35-150)
== END ==
PROVIDERS: PCP Family Medicine; Referring Provider Family Medicine; Visit Provider Family Medicine
DX: I10 Essential (primary) hypertension (principal); E78.5 Hyperlipidemia, unspecified
CPT/HCPCS: 36415; 80061